=== PATIENT | female | born 1985 | race Caucasian/White ===

== ENCOUNTER → 2019-03-14 | Outpatient (CLI) | payer MEDICARE ==
[~2019-03-14] MED LIST: ADVAIR 100/28 DISKUS IH; ALBUTEROL0.09 MG/A1 IH; CARBATROL200 MG PO; CARBATROL300 MG PO; FOLIC ACID; HUMIRA40 MG/0.8 MR; KEPPRA PO; METHOTREXA2.5 MG/TAB SQ; MIRALAX 17GM PK1 PKT PO; NEXIUM 20MG CAP20 MG PO; PREDNISONE1 MG PO; PROVENTIL0.09 MG/A1 IH; ZOFRAN 4MG T4 MG/TAB PO
== END ==
LOC: ZCOL.LAB 17:26
DX: J32.9 Chronic sinusitis, unspecified (principal)

== ENCOUNTER → 2021-05-20 | Outpatient (CLI) | payer MEDICARE | LOC: COL.VAS 13:15 | DX: I34.0 Nonrheumatic mitral (valve) insufficiency (principal) ==

== ENCOUNTER 2021-10-03 15:42 | Emergency (ER) | payer MEDICARE ==
[~2021-10-03] VITALS: Ht 170.2 cm; Wt 59.1 kg
[2021-10-03 15:55] VITALS: TEMP 97.8
[2021-10-03 16:33] LABS: BASO % 0.3 % (0.0-2.0); EOS % 0.3 % (0.0-4.0); GRAN # 3.6 K/mm3 (1.4-6.5); GRAN % 61.9 % (42.2-75.2); HEMATOCRIT 40.4 % (37.0-47.0); HEMOGLOBIN 14.1 g/dl (12.5-16.0); LYMPH # 1.4 K/mm3 (1.2-3.4); LYMPH % 23.4 % (20.0-51.0); MEAN CELL VOLUME 97 fl (80.0-100.0); MEAN CORPUSCULAR HEMOGLOBIN 34 pg (27-31); MEAN CORPUSCULAR HGB CONC 35 g/dl (33.0-37.0); MONO # 0.8 K/mm3 (0.1-0.6); MONO % 13.6 % (1.7-9.3); PLATELET COUNT 171 K/mm3 (130-400); RED BLOOD COUNT 4.17 M/mm3 (4.10-5.30); REDCELL DISTRIBUTION WIDTH-CV 11.2 % (11.5-14.5)
[2021-10-03 17:05] LABS: ALANINE AMINOTRANSFERASE 12 U/L (0-55); ALBUMIN 3.6 gm/dL (3.5-5.0); ALKALINE PHOSPHATASE 61 U/L (40-150); ANION GAP 12 mmol/L (7-16); AST,SGOT 21 U/L (5-34); BILIRUBIN,TOTAL 0.4 mg/dL (0.2-1.2); BLOOD UREA NITROGEN 17 mg/dL (7-19); CALCIUM 9.4 mg/dL (8.4-10.2); CARBON DIOXIDE 24 mmol/L (22-29); CHLORIDE 102 mmol/L (98-107); CREATININE, serum 0.88 mg/dL (0.57-1.11); GLUCOSE 83 mg/dL (70-99); POTASSIUM 4.3 mmol/L (3.5-4.5); SODIUM 138 mmol/L (136-145); TOTAL PROTEIN 7.5 gm/dL (6.2-8.1)
[2021-10-03 17:09] LABS: TROPONIN-I < 0.010 ng/mL (0.00-0.033)
[2021-10-03] MEDS ORDERED: ZOFRAN ODT4 MG PO (18:05)
[2021-10-03 18:52] VITALS: BP 119/66; PULSE 68
== END 2021-10-03 18:52 | disposition home or self-care (01) ==
LOC: COL.ER 15:42
PROVIDERS: Emergency Medicine
DX: U07.1 COVID-19 (principal); R79.1 Abnormal coagulation profile; Z73.0 Burn-out
CPT/HCPCS: J1100; J7120; Q9967

== ENCOUNTER 2022-07-07 13:40 | Emergency (ER) | payer MEDICARE ==
[~2022-07-07] VITALS: Ht 10.2 cm; Wt 50.0 kg
[~2022-07-07 13:40] MED LIST changes: +ZOFRAN ODT4 MG PO
[2022-07-07 14:16] LABS: BASO % 0.5 % (0.0-2.0); EOS % 0.7 % (0.0-4.0); GRAN # 3.1 K/mm3 (1.4-6.5); GRAN % 52.1 % (42.2-75.2); LYMPH # 2.1 K/mm3 (1.2-3.4); LYMPH % 34.4 % (20.0-51.0); MEAN CELL VOLUME 94 fl (80.0-100.0); MEAN CORPUSCULAR HEMOGLOBIN 32 pg (27-31); MEAN CORPUSCULAR HGB CONC 34 g/dl (33.0-37.0); MEAN PLATELET VOLUME 9.5 fl (7.4-10.4); MONO # 0.7 K/mm3 (0.1-0.6); PLATELET COUNT 187 K/mm3 (130-400); RED BLOOD COUNT 3.74 M/mm3 (4.10-5.30); REDCELL DISTRIBUTION WIDTH-CV 11.7 % (11.5-14.5)
[2022-07-07 14:21] LABS: HEMATOCRIT 35.3 % (37.0-47.0)
[2022-07-07 14:38] LABS: ALBUMIN 2.8 gm/dL (3.5-5.0); BILIRUBIN,TOTAL 0.2 mg/dL (0.2-1.2); CALCIUM 8.5 mg/dL (8.4-10.2); CREATININE, serum 0.79 mg/dL (0.57-1.11); TOTAL PROTEIN 7.1 gm/dL (6.2-8.1)
[2022-07-07 14:46] LABS: TROPONIN-I 0.013 ng/mL (0.00-0.033)
[2022-07-07] MEDS ORDERED: ZOFRAN ODT4 MG PO (15:43)
[2022-07-07 16:42] VITALS: BP 125/70; PULSE 85; TEMP 98.6
== END 2022-07-07 15:47 | disposition home or self-care (01) ==
LOC: COL.ER 13:40
PROVIDERS: Emergency Medicine
DX: U07.1 COVID-19 (principal); J98.4 Other disorders of lung; M06.9 Rheumatoid arthritis, unspecified; Z79.60 Long term (current) use of unspecified immunomodulators and immunosuppressants; Z73.0 Burn-out
CPT/HCPCS: J7120